=== PATIENT | male | born 1995 | race Caucasian/White ===

== ENCOUNTER 2023-12-14 06:59 | Emergency (ER) | payer BC, OTHER ==
[~2023-12-14] VITALS: Ht 167.6 cm; Wt 74.9 kg
[2023-12-14 07:43] VITALS: BP 132/88; PULSE 107; RESP 18; TEMP 97.8; O2SAT 98
[2023-12-14] MEDS: TETANUS-DIPTH-ACEL PERTUSSIS 0.5ML SYR Tdap IM ONE (07:57)
== END 2023-12-14 08:32 | disposition home or self-care (01) ==
LOC: ER 06:59
DX: S51.812A Laceration without foreign body of left forearm, initial encounter (principal); W45.8XXA Other foreign body or object entering through skin, initial encounter; Y93.89 Activity, other specified; Y92.89 Other specified places as the place of occurrence of the external cause; Y99.8 Other external cause status
CPT/HCPCS: 12002; 90471; 90715